=== PATIENT | male | born 1965 | race Caucasian/White ===

== ENCOUNTER 2024-02-24 08:45 | Outpatient (REF) | payer OTHER, SELFPAY ==
--- NOTE | ~2024-02-24 | CT_ITS ---
EXAMINATION: CT ABDOMEN AND PELVIS WITH CONTRAST CLINICAL INFORMATION: Weight loss COMPARISON: None available. TECHNIQUE: Multidetector volumetric images were obtained from the superior aspect of the liver through the pubic symphysis following administration 85 mL of Omnipaque 350 intravenous contrast. Sagittal and coronal reformatted images were obtained on the technologist's workstation. Oral contrast: Yes This CT examination was performed using dose optimization techniques as appropriate, variously including the following: *Automated exposure control *Adjustment of mA and/or kV according to patient size (this includes techniques or standardized protocols for targeted exams where dose is matched to indication/reason for exam; i.e. extremities or head) *Use of iterative reconstruction technique DLP: 719 mGy-cm FINDINGS: LUNG BASES: The visualized lung bases are clear. integrated marketing specialist in the interatrial septal region. LIVER, GALLBLADDER, AND BILIARY TREE: The liver is normal in size, shape, and attenuation. Small subcentimeter cyst in the anterior segment of the right lobe of the liver. No other focal hepatic lesion or biliary ductal dilatation is present. The gallbladder is unremarkable with no evidence of radiopaque gallstones, gallbladder wall thickening, or obvious pericholecystic inflammatory changes. PANCREAS: Unremarkable. SPLEEN: Unremarkable. ADRENAL GLANDS: Unremarkable. KIDNEYS AND URETERS: The kidneys are normal in size, shape, and attenuation. No hydronephrosis, hydroureter, or calculi seen. Left renal cyst. No imaging follow-up recommended. No perinephric stranding. BLADDER: Prostate gland slightly enlarged and protrudes into the base of the bladder. Bladder otherwise unremarkable. GASTROINTESTINAL TRACT: Diverticulosis of the colon. No evidence of diverticulitis. The small and large bowel are otherwise unremarkable. The stomach is unremarkable. The appendix is unremarkable. ABDOMINAL WALL: Small umbilical hernia containing fat. LYMPH NODES: Normal. VASCULAR: Unremarkable. PELVIC VISCERA: Lightly enlarged prostate gland that protrudes into the base of the bladder. Prostate gland measures approximately 4.8 x 5.6 cm in AP and transverse dimension. There are radiation seeds in the prostate gland. OSSEOUS STRUCTURES: Mild degenerative changes of the spine and hip joints. CT/CT abdomen pelvis w IV con IMPRESSION: Slightly enlarged prostate gland that protrudes into the base of the bladder. Radiation seeds in the prostate gland. Severe diverticulosis of the colon. No evidence of diverticulitis. Small liver cyst. Fleischner guidelines were followed.
[2024-02-24] MEDS: Barium Sulfate Oral (Berry) 450 ML ORAL.SUSP 900 ML PO (12:04)
[2024-02-24] MEDS: iohexoL 350 MG/ML 100 ML INFUS..BTL IV (12:05)
[2024-02-25 08:43] LABS: Creatinine POC 1.2 mg/dL (0.5-1.4); GFR POC > 60
== END 2024-02-24 08:46 | disposition home or self-care (01) ==
LOC: HO.CT 08:45
PROVIDERS: PCP Nurse Practitioner Family; Visit Provider Nurse Practitioner Family
DX: R63.4 Abnormal weight loss (principal)
CPT/HCPCS: 74177; 82565; Q9967